=== PATIENT | male | born 1960 | race Caucasian/White ===

== ENCOUNTER 2020-07-17 17:59 | Emergency (ER) | payer BC ==
[2020-07-17 20:12] LABS: HEMOGLOBIN 14.1 gm/dl (14.0-17.5); RED BLOOD COUNT 4.55 M/UL (4.20-5.50); WHITE BLOOD COUNT 6.4 K/UL (4.5-11.0)
[2020-07-17 20:27] LABS: BUN/CREATININE RATIO 16 (0-10)
== END 2020-07-17 22:16 | disposition home or self-care (01) ==
LOC: ER1 17:59
PROVIDERS: Physician Assistant Medical
DX: R53.83 Other fatigue (principal); E11.9 Type 2 diabetes mellitus without complications; J45.909 Unspecified asthma, uncomplicated; Z20.822 Contact with and (suspected) exposure to COVID-19; Z87.891 Personal history of nicotine dependence; Z79.899 Other long term (current) drug therapy
CPT/HCPCS: 70450; 71045; 80053; 81001; 82009; 82550; 82553; 82962; 83874; 84484; 85025; 93005; 99285; U0002